=== PATIENT | female | born 1955 | race Caucasian/White ===

== ENCOUNTER 2018-02-10 00:52 | Outpatient (CLI) | payer BC, SELFPAY ==
--- NOTE | 2018-02-10 08:24 | DI.REPORT_ITS ---
SYMPTOM/DIAGNOSIS: ? OA, H/O INJURY, PAIN RIGHT KNEE: No bony or joint abnormality is seen.
== END 2018-02-10 00:53 ==
PROVIDERS: PCP General Practice; Visit Provider Naturopath
DX: M25.561 Pain in right knee (principal)
CPT/HCPCS: 73562

== ENCOUNTER 2018-03-16 02:40 | Outpatient (CLI) | payer BC, SELFPAY ==
--- NOTE | 2018-03-16 11:00 | DI.MAMMO_ITS ---
SYMPTOM/DIAGNOSIS: SCREENING, Z12.31 MAMMOGRAMS: Mammograms were interpreted according to the usual protocol including computer analysis with CAD system, tomosynthesis and C view imaging. The breast tissue is heterogeneously radiodense which lowers the sensitivity of the study. There is no dominant mass. There are no suspicious calcifications and there has been no significant interval change when compared with prior images. SUMMARY: No evidence of malignancy, Category 1. Yearly screening mammography is recommended. Breast density, category C. SA ASSESSMENT OF FINDINGS: Negative. Category 1. Patient will receive a letter notifying them of these results. Bi-RADS category C. The breasts are heterogeneously dense, which may obscure small masses.
== END 2018-03-16 03:00 ==
PROVIDERS: PCP General Practice; Visit Provider Nurse Practitioner Family
DX: Z12.31 Encounter for screening mammogram for malignant neoplasm of breast (principal)
CPT/HCPCS: 77063; 77067

== ENCOUNTER 2018-05-08 08:08 | Emergency (ER) | payer BC, SELFPAY ==
[2018-05-08 08:12] VITALS: BP 134/74; PULSE 63; RESP 18; TEMP 36.5; O2SAT 100
--- NOTE | 2018-05-08 08:29 | W.ED.GENAD ---
Discharge Plan Disposition Patient Disposition: HOME Discharge Details Chief Complaint: Nk/Back Pain Clinical Impression: Nodule, subcutaneous Primary Care Provider: Talat Kendall ED Provider: Gilmar Calderón Home Meds and New Rx's Prescriptions: Continue ascorbic acid (vitamin C) [Vitamin C] 1,000 MG tablet 1,000 mg PO DAILY RF: 0 levothyroxine 75 MCG tablet 75 mcg PO DAILY RF: 0 hydrochlorothiazide 25 MG tablet 25 mg PO DAILY RF: 0 cholecalciferol (vitamin D3) [Vitamin D3] 1,000 UNIT capsule 1,000 unit PO DAILY RF: 0 rosuvastatin [Crestor] 5 MG tablet 5 mg PO DAILY RF: 0 vitamin B64-muesv acid 1 EACH tablet 1 ea PO DAILY RF: 0 estradiol [Vagifem] 10 MCG tablet 10 mcg VG HS twice weekly Qty: 24 RF: 12 estradiol [Vagifem] 10 MCG tablet 10 mcg VG HS Qty: 7 RF: 0 selenium 100 MCG tablet PO DAILY RF: 0 Discharge Instructions Instructions: Lymphadenopathy (ED) Additional Instructions: Please continue taking ibuprofen for discomfort over the next 1 week- dose according to label. If pain persists or worsens over the next 1 week, please follow-up for additional testing. Call your doctor. Return to the ER for worsening or new concerning symptoms. Referrals: Talat Kendall MD [Primary Care Provider] - Medical Decision Making 62-year-old female here with 2-3 days of localized swelling described as a lump and mild pain and tenderness posterior lateral occiput. No significant swelling on exam. No erythema. Questionable subcutaneous nodule, likely mild lymphadenopathy, in this area. No signs of focal bacterial infection. Unclear etiology. Possibly secondary to hair dye. I advised using a different hair dye product. Possible early folliculitis. I encouraged her to follow-up with her primary care physician and to return should have any worsening or new concerning symptoms. Usual and customary discharge instructions were provided. HPI General Mode of arrival: ambulatory. Date/Time Provider Initiated Documentation: 05/08/18 08:16. Limitations to Documentation: no limitations. Information obtained by: patient. HPI Narrative: 62yo f here with chief complaint of swelling to the back of her neck and occipital scalp. She notices 2-3 days ago and has persisted. No modifiers. Area feels like a lumpthat is mildly tender. She has no associated fever. No rash. No headache. Symptoms did start after she recently dyed her hair. Related Data Home Medications Medication Instructions Recorded Confirmed ascorbic acid (vitamin C) [Vitamin 1,000 mg PO DAILY 08/26/16 05/08/18 C] cholecalciferol (vitamin D3) 1,000 unit PO DAILY 08/26/16 05/08/18 [Vitamin D3] estradiol [Vagifem] 10 mcg VG HS #7 tab 08/26/16 05/08/18 estradiol [Vagifem] 10 mcg VG HS twice weekly #24 tab 08/26/16 05/08/18 hydrochlorothiazide 25 mg PO DAILY tab-cap 08/26/16 05/08/18 levothyroxine 75 mcg PO DAILY tab-cap 08/26/16 05/08/18 rosuvastatin [Crestor] 5 mg PO DAILY tab-cap 08/26/16 05/08/18 vitamin K55-fjzuh acid 1 ea PO DAILY 08/26/16 05/08/18 selenium mcg PO DAILY 12/01/16 Allergies Allergy/AdvReac Type Severity Reaction Status Date / Time No Known Allergies Allergy Unverified 02/10/18 09:23 General Stated Complaint: Nk/Back Pain VON: 4 Review of Systems Constitutional Denies fever(s) ENT Denies otalgia, Denies nasal congestion and Denies sinus pain Respiratory Denies cough Gastrointestinal Denies nausea Hematologic/Lymphatic Reports as per HPI PFSH Family History Mother Pancreatic cancer Father Diabetes Myocardial infarction Social History Smoking/Tobacco Use Status: Never Surgical History section Hysterectomy, Laproscopic Exam Const General: cooperative and no acute distress [facility] Head: normocephalic, atraumatic, no scalp lesions and scalp tenderness (left occipital lateral scalp with mild swelling and tender; questionable subcutanoues nodule or lymphadenopathy palpated) Ears: external ears normal, TM normal on the left, EAC's normal and mastoids normal General nose exam: external nose normal Face and sinus: normal facial exam Mouth: moist mucous membranes Throat: posterior oropharynx normal and uvula midline Eyes Conjunctivae: normal conjunctivae Sclera: normal sclerae EOM: EOM intact bilaterally Neck Neck: trachea midline, supple, no anterior neck swelling and No submandibular swelling Thyroid: thyroid normal Lymphatic: no lymphadenopathy noted Resp Auscultation: clear to auscultation bilaterally, no rales, no rhonchi and no wheezes Cardio Jugular venous pressure: no JVD Rate: regular rate and not tachycardic Rhythm: regular rhythm Skin General skin exam: no rashes or lesions noted Neuro General: alert, awake, oriented x3 and tone normal Extrem General: no edema Course Vital Signs Temperature 36.5 C 05/08/18 08:12 Pulse 63 05/08/18 08:12 Respiratory Rate 18 05/08/18 08:12 Blood Pressure 134/74 05/08/18 08:12 Pulse Oximetry 100 05/08/18 08:12 Temperature 36.5 C 05/08/18 08:12 Temperature Source Temporal Artery Scan 05/08/18 08:12 Pulse 63 05/08/18 08:12 Respiratory Rate 18 05/08/18 08:12 Respiratory Effort Non-Labored 05/08/18 08:16 Blood Pressure 134/74 05/08/18 08:12 Blood Pressure Position Sitting 05/08/18 08:12 Pulse Oximetry 100 05/08/18 08:12 Oxygen Delivery Method Room Air 05/08/18 08:12 Oxygen Flow Rate 0 05/08/18 08:12 Pain Level 5 05/08/18 08:12
--- NOTE | 2018-05-08 08:42 | ED.GENADUL_ITS ---
Discharge Plan Disposition Patient Disposition: HOME Discharge Details Chief Complaint: Nk/Back Pain Clinical Impression: Nodule, subcutaneous Primary Care Provider: Talat Kendall ED Provider: Gilmar Calderón Home Meds and New Rx's Prescriptions: Continue ascorbic acid (vitamin C) [Vitamin C] 1,000 MG tablet 1,000 mg PO DAILY RF: 0 levothyroxine 75 MCG tablet 75 mcg PO DAILY RF: 0 hydrochlorothiazide 25 MG tablet 25 mg PO DAILY RF: 0 cholecalciferol (vitamin D3) [Vitamin D3] 1,000 UNIT capsule 1,000 unit PO DAILY RF: 0 rosuvastatin [Crestor] 5 MG tablet 5 mg PO DAILY RF: 0 vitamin A01-llcvj acid 1 EACH tablet 1 ea PO DAILY RF: 0 estradiol [Vagifem] 10 MCG tablet 10 mcg VG HS twice weekly Qty: 24 RF: 12 estradiol [Vagifem] 10 MCG tablet 10 mcg VG HS Qty: 7 RF: 0 selenium 100 MCG tablet PO DAILY RF: 0 Discharge Instructions Instructions: Lymphadenopathy (ED) Additional Instructions: Please continue taking ibuprofen for discomfort over the next 1 week- dose according to label. If pain persists or worsens over the next 1 week, please follow-up for additional testing. Call your doctor. Return to the ER for worsening or new concerning symptoms. Referrals: Talat Kendall MD [Primary Care Provider] - Medical Decision Making 62-year-old female here with 2-3 days of localized swelling described as a lump and mild pain and tenderness posterior lateral occiput. No significant swelling on exam. No erythema. Questionable subcutaneous nodule , likely mild lymphadenopathy, in this area. No signs of focal bacterial infection. Unclear etiology. Possibly secondary to hair dye. I advised using a different hair dye product. Possible early folliculitis. I encouraged her to follow-up with her primary care physician and to return should have any worsening or new concerning symptoms. Usual and customary discharge instructions were provided. HPI General Mode of arrival: ambulatory . Date/Time Provider Initiated Documentation: 05/08/18 08:16 . Limitations to Documentation: no limitations . Information obtained by: patient . HPI Narrative: 62yo f here with chief complaint of swelling to the back of her neck and occipital scalp. She notices 2-3 days ago and has persisted. No modifiers. Area feels like a lumpthat is mildly tender. She has no associated fever. No rash. No headache. Symptoms did start after she recently dyed her hair. Related Data Home Medications Medication Instructions Recorded Confirmed ascorbic acid (vitamin C) [Vitamin 1,000 mg PO DAILY 08/26/16 05/08/18 C] cholecalciferol (vitamin D3) 1,000 unit PO DAILY 08/26/16 05/08/18 [Vitamin D3] estradiol [Vagifem] 10 mcg VG HS #7 tab 08/26/16 05/08/18 estradiol [Vagifem] 10 mcg VG HS twice weekly #24 tab 08/26/16 05/08/18 hydrochlorothiazide 25 mg PO DAILY tab-cap 08/26/16 05/08/18 levothyroxine 75 mcg PO DAILY tab-cap 08/26/16 05/08/18 rosuvastatin [Crestor] 5 mg PO DAILY tab-cap 08/26/16 05/08/18 vitamin U01-hutrc acid 1 ea PO DAILY 08/26/16 05/08/18 selenium mcg PO DAILY 12/01/16 Allergies Allergy/AdvReac Type Severity Reaction Status Date / Time No Known Allergies Allergy Unverified 02/10/18 09:23 General Stated Complaint: Nk/Back Pain VON: 4 Review of Systems Constitutional Denies fever(s) ENT Denies otalgia, Denies nasal congestion and Denies sinus pain Respiratory Denies cough Gastrointestinal Denies nausea Hematologic/Lymphatic Reports as per HPI PFSH Family History Mother Pancreatic cancer Father Diabetes Myocardial infarction Social History Smoking/Tobacco Use Status: Never Surgical History section Hysterectomy, Laproscopic Exam Const General: cooperative and no acute distress [facility] Head: normocephalic, atraumatic, no scalp lesions and scalp tenderness (left occipital lateral scalp with mild swelling and tender; questionable subcutanoues nodule or lymphadenopathy palpated) Ears: external ears normal, TM normal on the left, EAC's normal and mastoids normal General nose exam: external nose normal Face and sinus: normal facial exam Mouth: moist mucous membranes Throat: posterior oropharynx normal and uvula midline Eyes Conjunctivae: normal conjunctivae Sclera: normal sclerae EOM: EOM intact bilaterally Neck Neck: trachea midline, supple, no anterior neck swelling and No submandibular swelling Thyroid: thyroid normal Lymphatic: no lymphadenopathy noted Resp Auscultation: clear to auscultation bilaterally, no rales, no rhonchi and no wheezes Cardio Jugular venous pressure: no JVD Rate: regular rate and not tachycardic Rhythm: regular rhythm Skin General skin exam: no rashes or lesions noted Neuro General: alert, awake, oriented x3 and tone normal Extrem General: no edema Course Vital Signs Temperature 36.5 C 05/08/18 08:12 Pulse 63 05/08/18 08:12 Respiratory Rate 18 05/08/18 08:12 Blood Pressure 134/74 05/08/18 08:12 Pulse Oximetry 100 05/08/18 08:12 Temperature 36.5 C 05/08/18 08:12 Temperature Source Temporal Artery Scan 05/08/18 08:12 Pulse 63 05/08/18 08:12 Respiratory Rate 18 05/08/18 08:12 Respiratory Effort Non-Labored 05/08/18 08:16 Blood Pressure 134/74 05/08/18 08:12 Blood Pressure Position Sitting 05/08/18 08:12 Pulse Oximetry 100 05/08/18 08:12 Oxygen Delivery Method Room Air 05/08/18 08:12 Oxygen Flow Rate 0 05/08/18 08:12 Pain Level 5 05/08/18 08:12
== END 2018-05-08 08:39 | disposition home or self-care (01) ==
PROVIDERS: Emergency Provider Student in an Organized Health Care Education/Training Program; PCP General Practice
DX: R22.1 Localized swelling, mass and lump, neck (principal); R51 Headache
CPT/HCPCS: 99282

== ENCOUNTER 2019-05-29 03:08 | Outpatient (CLI) | payer BC, SELFPAY | END 2019-05-29 03:28 | PROVIDERS: PCP General Practice; Visit Provider General Practice | DX: E03.9 Hypothyroidism, unspecified (principal) | CPT/HCPCS: 36415; 84443 ==

== ENCOUNTER 2019-07-20 08:25 | Day surgery (SDC) | payer BC, SELFPAY ==
[2019-07-20 08:41] VITALS: BP 118/79; PULSE 64; RESP 16; TEMP 36.3; O2SAT 98
[2019-07-20] MEDS: Lactated Ringers 1,000 ML 80 ML IV (09:02)
--- NOTE | 2019-07-20 10:50 | BOWEL_PTH ---
PATIENT: Kendra Rodriguez LOC: [facility] U#:[id number] AGE/SX: 63/F ROOM: RE07/20/[address]: Zully Wolff : 1955 BED: DIS: 07/20/2019 SPEC #: [id number] RECD: 07/20/19 12:51 STATUS: YOSEF REQ #: [id number] KRUPA: 07/20/19 10:[address]: Zully Wolff DEPT: Surgical Specimen RECD BY: Sandy Watt ENTERED: 07/20/19 12:52 SP TYPE: Bowel OTHR DR: Nicole Goldberg DO Tissues: 1 - BIOPSY BOWEL Procedures: GROSS AND MICRO LEVEL 4 Comments: [id number]
--- NOTE | 2019-07-20 10:56 | W.PM.DSUDISC ---
Discharge Plan Disposition Patient Disposition: HOME Condition: Good Discharge Details Reason For Visit: colon scope Attending Provider: Zully Wolff Primary Care Provider: Nicole Goldberg Home Meds and New Rx's Prescriptions: Continued estradiol [Vagifem] 10 mcg tablet 10 mcg VG DAILY 14 Days Qty: 24 RF: 4 ascorbic acid (vitamin C) [Vitamin C] 1,000 MG tablet 1,000 mg PO DAILY RF: 0 levothyroxine 75 MCG tablet 75 mcg PO DAILY RF: 0 hydrochlorothiazide 25 MG tablet 25 mg PO DAILY RF: 0 cholecalciferol (vitamin D3) [Vitamin D3] 1,000 UNIT capsule 1,000 unit PO DAILY RF: 0 rosuvastatin [Crestor] 5 MG tablet 5 mg PO DAILY RF: 0 vitamin Z71-xfmyn acid 1 EACH tablet 1 ea PO DAILY RF: 0 selenium 100 MCG tablet 100 mcg PO DAILY RF: 0 ibuprofen 200 mg Tablet 400 mg PO PRN PRNRF: 0 Discontinued polyethylene glycol 3350 17 gram/dose powder 238 g PO ONCE Qty: 238 RF: 0 bisacodyl [Dulcolax (bisacodyl)] 5 mg tablet,delayed release (DR/EC) 5 mg PO ONCE Qty: 4 RF: 0 Discharge Instructions Additional Instructions: Findings: x1 sm polyp Follow up: will send a letter in 2-3 wks when to repeat scope Please call if you develop: fevers >101.5 Nausea or Vomiting Abdominal pain that is not transient DAY SURGERY UNIT POST COLONOSCOPY INSTRUCTIONS 1. Because there will be medication in your system for the next 24 hours, you may feel a little sleepy. Your coordination will be affected. Therefore: a. Do not drive or operate dangerous equipment for 24 hours. b. Do not drink alcohol beverages for 24 hours (not even beer). c. Plan to go home and rest for the day. 2. Generally there are no restrictions on your activity after a day or so has gone by, but you may feel a bit fatigued for a few days. 3 After you arrive home you may have a light meal and return to a normal diet as you can tolerate it without feeling sick to your stomach. 4. After surgery, you may feel pain or discomfort. This should be only transient, but if it persists please contact your doctor. 5. If there are any questions regarding the findings of your procedure, please feel free to contact your doctor. 6. If you are unable to contact your doctor with a problem, contact the hospital at [phone]. 7. Continue all your regular medications unless directed otherwise. I understand the above instructions and have no questions. Signature of Patient or Responsible Adult Escort Date/Time Name of Responsible Adult Escort Signature of Nurse Date/Time Activity:: No heavy lifting or strenuous activity x24 hours. Diet:: Small light meals x24 hours Discharge Orders Discharge Orders: Discharge Order (Routine); Ordered 07/20/19 Ordered By: Zully Wolff DS: Diagnosis Discharge Diagnosis (1) Adenomatous polyps: Status: Acute
[2019-07-20 11:41] VITALS: BP 143/75; PULSE 56; RESP 16; TEMP 35.6; O2SAT 100
--- NOTE | 2019-07-21 11:44 | W.COLOREPORT ---
Date of service: 07/20/19 Time of Service: 10:45 Colonoscopy Report Date of procedure: 07/20/19 Pre-op diagnosis general: CRC scree Post-op diagnosis procedure note: other Procedure: CE polyp removal hot forcep R colon Surgeon: Zully Wolff Anesthesia proc note operative: GETA Estimated blood loss (mL): 1 Pathology: other Complications: None Disposition: same day Prep: Miralax/Dulcolax Retraction Time: 12 Procedure Description: After informed consent was obtained the patient was taken to the procedure room and placed in a left decubitous position. Monitors were applied and a time out was done. The patients name, date of , procedure, allergies to medications and metal in their body was reviewed. The patient was then sedated. Once sedated and comfortable a rectal exam was done. External exam was normal. Internal exam revealed a normal sphincter tone and no palpable masses. The scope was then introduced and retrofelexed. No internal hemorrhoids were identified. The scope was then advanced to the cecum w/out difficulty. The TI and appendiceal orifice were identified. The prep was Adequate. The scope was then slowly retracted over 12 minutes back into the rectum. Polyps were removed at 70cm w/ hot forcept. There are no AVMs or diverticula. The mucosa can healthy. The scope was removed and the patient was woken up and taken back to Same day surgery in stable condition. The patient tolerated the procedure well and there were no immediate complications. Follow up: The patient should follow up in 5-10 years, path pd, unless they develop changes in bowel habits or other new gastrointestinal complaints.
== END 2019-07-20 12:20 | disposition home or self-care (01) ==
PROVIDERS: PCP Student in an Organized Health Care Education/Training Program; Visit Provider Surgery
PROC: 0DJD8ZZ Inspection of Lower Intestinal Tract, Via Natural or Artificial Opening Endoscopic (ICD-10-PCS; CPT 45378; principal; 2019-07-20 09:00)
DX: Z12.11 Encounter for screening for malignant neoplasm of colon (principal); D12.6 Benign neoplasm of colon, unspecified; I10 Essential (primary) hypertension
CPT/HCPCS: 45384; 88305; J2001

== ENCOUNTER 2019-07-27 08:18 | Outpatient (CLI) | payer BC, SELFPAY ==
[2019-07-27 08:37] LABS: HCT 36.5 % (36.0-46.0); HGB 11.7 g/dL (12.0-15.5); Mean Corp. HGB Concentration 32.1 g/dL (32.0-36.0); Mean Corpuscular Hemoglobin 28.1 pg (27.0-33.0); Mean Corpuscular Volume 87.7 fL (80-95); Mean Platelet Volume 9.9 fL (8.0-11.0); Platelet Count 276 x1000/uL (130-400); RBC 4.16 m/cumm (4.00-5.20); RBC Distribution Width 14.3 % (11.7-14.6); White Blood Cell Count 5.52 k/cumm (4.4-10.8)
[2019-07-27 10:03] LABS: ALT 35 U/L (14-59); AST 26 U/L (15-37); Albumin 3.4 g/dL (3.4-5.0); Alkaline Phosphatase 78 U/L (46-116); Anion Gap 8.9 mmol/L (3-11); BUN 18 mg/dL (7-18); Bilirubin, Total 0.5 mg/dL (0.2-1.0); CO2 28.1 mmol/L (21.0-32.0); CREATININE 0.77 mg/dL (0.55-1.02); Calcium 8.7 mg/dL (8.5-10.1); Calculated LDL 97 mg/dL; Chloride 104 mmol/L (98-107); Cholesterol 163 mg/dL (<200); Glucose 88 mg/dL (74-106); HDL Cholesterol 57 mg/dL (40-60); Potassium 4.2 mmol/L (3.5-5.1); Sodium 141 mmol/L (136-145); Total Protein 7.2 g/dL (6.4-8.2); Triglyceride 47 mg/dL (<150)
[2019-07-27 10:14] LABS: Vitamin D 25 Total 59.4 ng/ml (30-100)
== END 2019-07-27 08:38 ==
PROVIDERS: PCP Student in an Organized Health Care Education/Training Program; Visit Provider Student in an Organized Health Care Education/Training Program
DX: D36.9 Benign neoplasm, unspecified site (principal); E78.5 Hyperlipidemia, unspecified; E55.9 Vitamin D deficiency, unspecified; I10 Essential (primary) hypertension; Z13.220 Encounter for screening for lipoid disorders; Z86.2 Personal history of diseases of the blood and blood-forming organs and certain disorders involving the immune mechanism
CPT/HCPCS: 36415; 80053; 80061; 82306; 85027

== ENCOUNTER 2020-03-06 10:47 | Outpatient (REF) | payer BC, SELFPAY | END 2020-03-06 11:07 | LOC: LBN 10:47 | PROVIDERS: PCP Student in an Organized Health Care Education/Training Program; Visit Provider Student in an Organized Health Care Education/Training Program | DX: M54.5 Low back pain (principal) | CPT/HCPCS: 87077; 87086; 87186 ==

== ENCOUNTER 2020-04-08 10:51 | Outpatient (CLI) | payer BC, SELFPAY ==
[2020-04-10 02:47] LABS: Patient Race White; SARS-CoV-2 RNA Undetected (Undetected); SARS-CoV-2 Specimen Source Nasopharynx
== END 2020-04-08 11:11 ==
PROVIDERS: PCP Student in an Organized Health Care Education/Training Program; Visit Provider Family Medicine
DX: Z20.828 Contact with and (suspected) exposure to other viral communicable diseases (principal)
CPT/HCPCS: U0003

== ENCOUNTER 2020-04-24 07:59 | Outpatient (CLI) | payer BC, SELFPAY ==
[2020-04-26 16:12] LABS: Patient Race White; SARS-CoV-2 RNA Undetected (Undetected); SARS-CoV-2 Specimen Source Nasal
== END 2020-04-24 08:19 ==
PROVIDERS: PCP Student in an Organized Health Care Education/Training Program; Visit Provider Student in an Organized Health Care Education/Training Program
DX: Z11.59 Encounter for screening for other viral diseases (principal)
CPT/HCPCS: U0003

== ENCOUNTER 2020-07-29 04:37 | Outpatient (CLI) | payer MEDICARE, OTHER, SELFPAY ==
[2020-07-30 14:36] LABS: COVID-19 RT-PCR UVMMC Result Negative (Negative)
== END 2020-07-29 04:57 ==
PROVIDERS: PCP Student in an Organized Health Care Education/Training Program; Visit Provider Student in an Organized Health Care Education/Training Program
DX: Z20.822 Contact with and (suspected) exposure to COVID-19 (principal)
CPT/HCPCS: U0003

== ENCOUNTER 2020-08-28 02:16 | Outpatient (CLI) | payer MEDICARE, SELFPAY ==
[2020-08-29 11:32] LABS: COVID-19 RT-PCR UVMMC Result Negative (Negative)
== END 2020-08-28 02:17 | disposition home or self-care (01) ==
LOC: LBO 02:16
PROVIDERS: PCP Student in an Organized Health Care Education/Training Program; Visit Provider Student in an Organized Health Care Education/Training Program
DX: Z20.822 Contact with and (suspected) exposure to COVID-19 (principal)
CPT/HCPCS: U0003; U0005

== ENCOUNTER 2020-10-17 15:37 | Outpatient (CLI) | payer MEDICARE, OTHER, SELFPAY ==
--- NOTE | 2020-10-17 15:30 | RT.EKG_ITS ---
APPROVED REPORT Exam: Resting ECG Patient Location: O HR:55 bpm ECG Measurements Heart Rate 55 AXIS MS 206 P 68 QRSd 98 QRS 9 QT 446 T 31 QTc 426 Conclusion Sinus bradycardia...rate< 60 Normal Electrocardiogram
== END 2020-10-17 15:38 | disposition home or self-care (01) ==
LOC: DI.KIM 15:38
PROVIDERS: PCP Student in an Organized Health Care Education/Training Program; Visit Provider Student in an Organized Health Care Education/Training Program
DX: Z13.6 Encounter for screening for cardiovascular disorders (principal)
CPT/HCPCS: 93010

== ENCOUNTER 2020-11-25 01:25 | Outpatient (CLI) | payer MEDICARE, SELFPAY ==
--- NOTE | 2020-11-25 06:30 | DI.MAMMO_ITS ---
Exam(s) MAMMO SCREENING EXAM: MAMMO SCREENING CLINICAL HISTORY: screening,Z12.39. TECHNIQUE: Bilateral full field digital CC and MLO mammographic images were obtained with 3D tomosyn thesis and utilizing computer aided detection (CAD). COMPARISON: Prior mammograms dating back to 2015, the most recent being March 2018.. Prior outside breast ultrasound August 2015 was reviewed. FINDINGS: In the left breast there is a suggestion of an 8 millimeter x 7 millimeter asymmetric density-possibl e nodule located 9 cm in from the nipple, best seen on the CC view at approximately 3 o'clock positio n. There is also another nodule in the left breast best seen on the MLO view measuring measuring 5 x 3 m illimeters and located 9 cm in from the nipple. Located laterally of center. There are no malignant-appearing microcalcification groups in either breast. There is no significant architectural distortion nor skin thickening-retraction. IMPRESSION: No radiographic evidence of malignancy in the right breast. Left breast nodules. Spot compression views plus ultrasound recommended BI-RADS Category 0 - Assessment Incomplete: Need additional imaging evaluation Breast Density - Category C - Heterogeneously dense Breast density Category C or D implies that the patient has dense breast tissue. Dense breast tissue can make it harder to find cancer on a mammogram. Dense breast tissue is also associated with an incr eased risk of breast cancer. This information about the result of the mammogram report was provided to the patient to raise their awareness. Use this report when you speak with the patient about their risks for breast cancer, which includes their family history. At that time, you may recommend additional screening tests (Ultrasoun d or MRI) as these tests may add significant information. A negative radiographic report should not delay biopsy if a dominant or clinically suspicious mass is present. Up to ten percent of cancers are not identified on mammography. A negative report may reinforce clinical impression. Adenosis and dense breasts may obscure an underlying neoplasm. False positive reports average 6 to 10%. Patient will receive a letter notifying them of these results.
== END 2020-11-25 01:45 ==
PROVIDERS: PCP Student in an Organized Health Care Education/Training Program; Visit Provider Student in an Organized Health Care Education/Training Program
DX: Z12.31 Encounter for screening mammogram for malignant neoplasm of breast (principal); R92.8 Other abnormal and inconclusive findings on diagnostic imaging of breast
CPT/HCPCS: 77063; 77067

== ENCOUNTER 2020-12-05 01:37 | Outpatient (CLI) | payer MEDICARE, OTHER, SELFPAY ==
--- NOTE | 2020-12-05 | DI.US_ITS ---
Exam(s) MG MAMMO SCREEN CALL BACK UNI US BREAST LT LIMITED EXAM: MG MAMMO SCREEN CALL BACK UNI and U/S breast LT limited CLINICAL HISTORY: F/U MAMMO, SUGGESTION OF ASYMMETRIC DENSITY,? NODULE,2ND LT BREAST NODULE. TECHNIQUE: Craniocaudal and mediolateral oblique Full Field Digital Mammography views of the left br east with Computer Aided Diagnosis followed by Tomosynthesis and left breast ultrasound. COMPARISON: Previous available for comparison. FINDINGS: Mammography/Tomosynthesis: Masses/Architectural Distortion: On the left MLO view, there is again seen a well-circumscribed ovoid nodule in the subcutaneous tissues of the upper left breast seen on the mediolateral oblique view. No associated spiculation or microcalcifications are seen. Microcalcifictions: No suspicious pleomorphic-type are seen. Skin Thickening/Nipple Retraction: None. Left breast US: Echotexture: Normal appearance of the glandular tissue. Shadowing: No suspicious foci. Cyst: None. Solid lesions: None seen. Ductal dilation: None. IMPRESSION: 1. Well-circumscribed ovoid nodule in subcutaneous tissues of the left breast. 2. No definite evidence for malignancy at this time. A follow-up left mammogram in 3 months is recom mended for re-evaluation. 3. The findings were discussed with the patient on the date of the examination. BI-RADS Category 3 - Probably Benign Finding: Recommend follow-up imaging in 3 months Breast Density - Category C - Heterogeneously dense Breast density Category C or D implies that the patient has dense breast tissue. Dense breast tissue can make it harder to find cancer on a mammogram. Dense breast tissue is also associated with an incr eased risk of breast cancer. This information about the result of the mammogram report was provided to the patient to raise their awareness. Use this report when you speak with the patient about their risks for breast cancer, which includes their family history. At that time, you may recommend additional screening tests (Ultrasoun d or MRI) as these tests may add significant information. A negative radiographic report should not delay biopsy if a dominant or clinically suspicious mass is present. Up to ten percent of cancers are not identified on mammography. A negative report may reinforce clinical impression. Adenosis and dense breasts may obscure an underlying neoplasm. False positive reports average 6 to 10%. Patient will receive a letter notifying them of these results.
== END 2020-12-05 01:57 ==
PROVIDERS: PCP Student in an Organized Health Care Education/Training Program; Visit Provider Student in an Organized Health Care Education/Training Program
DX: Z12.31 Encounter for screening mammogram for malignant neoplasm of breast (principal); R92.8 Other abnormal and inconclusive findings on diagnostic imaging of breast; N63.21 Unspecified lump in the left breast, upper outer quadrant
CPT/HCPCS: 76642; 77063; 77067